=== PATIENT | male | born 1945 | race Caucasian/White ===

== ENCOUNTER → 2016-04-14 | Outpatient (CLI) | payer MEDICARE ==
[2016-04-14 10:42] LABS: Blood Urea Nitrogen 18 mg/dL (9-20); Non-African American GFR(MDRD) >60 (>60 ml/min/1.73 sqM)
--- NOTE | 2016-04-14 12:53 | CT ---
EXAMINATION TYPE: CT angio chest DATE OF EXAM: 04/14/2016 12:40 PM COMPARISON: CT chest April 17, 2015 HISTORY: Thoracic ascending aortic aneurysm CT DLP: 621.80 mGycm. Automated Exposure Control for Dose Reduction was Utilized. CONTRAST: CTA scan of the thorax is performed without and with IV Contrast, patient injected with 100 ml mL of Omnipaque 350, pulmonary embolism protocol. Three-D reconstructed images are created on independent [employer] orkstation and reviewed. FINDINGS: LUNGS: There is stable 4 x 5 mm nodular opacity posterior medial left upper lobe on axial image 21. There is stable 2 mm nodule right midlung on axial image 29. Chest posterior and lateral to this ther e is new vague 5 x 3 mm nodular opacity that can be followed. There is new linear atelectatic change anteriorly in both mid lungs near axial image 37. Some new micronodule area in the left lower lobe is present near axial image 45. There is interval improvement in bibasilar infiltrate. There is no pleu ral effusion or pneumothorax seen bilaterally. Interval resolution of masslike consolidation or pleur al fluid in the anterior right midlung anterior to ascending aorta is noted. The tracheobronchial roly e is patent. MEDIASTINUM: There is satisfactory enhancement of the pulmonary artery and its branches, there is no CT evidence for pulmonary embolism. There are no greater than 1 cm hilar or mediastinal lymph nodes. No cardiomegaly or pericardial effusion is seen. Ascending aorta measures up to 4.3 cm in diameter on current study image 73 felt unchanged from prior. Adjacent main pulmonary artery is not dilated. No linear hypodensity to suggest dissection is present. There is mild but stable prominence of the de scending thoracic aorta. There is multilevel spurring in the spine. OTHER: Large nondependent gallstone is again seen. IMPRESSION: Stable 4.2 cm aneurysm of ascending thoracic aorta. Interval resolution of the anterior m id lung fluid collection or masslike consolidation most likely reflecting resolved pleural fluid kaley ection. Scattered parenchymal nodularity present measuring up to 5 mm with some new areas noted from prior. Appropriate CT follow up as per Fleischner Society recommendations advised.
== END | disposition home or self-care (01) ==
LOC: RADCTMAIN 10:02
PROVIDERS: ATTEND Thoracic Surgery (Cardiothoracic Vascular Surgery)
DX: I71.2 Thoracic aortic aneurysm, without rupture (principal); J98.4 Other disorders of lung
CPT/HCPCS: 82565; 84520; 71275; 36415; Q9967

== ENCOUNTER → 2017-03-12 | Outpatient (CLI) | payer MEDICARE ==
[2017-03-12 13:09] LABS: Blood Urea Nitrogen 21 mg/dL (9-20)
--- NOTE | 2017-03-12 14:25 | CT ---
EXAMINATION TYPE: CT chest w con DATE OF EXAM: 03/12/2017 COMPARISON: [id number] HISTORY: Follow up scan CT DLP: 378.5 mGycm. Automated Exposure Control for Dose Reduction was Utilized. TECHNIQUE: CT scan of the thorax is performed following with IV Contrast, patient injected with 100 mL of Omnipaque 300. FINDINGS: LUNGS: The previously seen superior segment right lower lobe 5 mm pulmonary nodule is not visualized on today's examination and is likely related to slice collection. The previously seen right middle lo be 2 mm pulmonary nodule on series 4 image 32 is unchanged. The previously seen anterior mid lung sub segmental atelectasis is resolved in the interim. There is stability of the left upper lobe 5 mm pulm onary nodule on series 4 image 22. A new 3 mm pulmonary nodule seen on series 4 image 26 within the l eft upper lobe. This greater than present on the prior and nonvisualized due to slice selection. The previously seen left basilar micronodular opacity is no longer present and likely related to atelecta sis that has resolved in the interim. Punctate left basilar granuloma is noted. There is no pleural e ffusion or pneumothorax seen. The tracheobronchial tree is patent. MEDIASTINUM: The ascending thoracic aorta is stable measuring up to 4.3 cm on series 6 image 34 (christine nal sequence). The sinotubular junction measures 3.7 cm. There are no greater than 1 cm hilar or medi astinal lymph nodes. The largest right hilar lymph node measures 9 mm in short axis. Trace pericardi al effusion is present. No main pulmonary arterial enlargement. OTHER: Minimal retroareolar gynecomastia is noted bilaterally. Redemonstration of a large lamellated gallstone. Moderate multilevel degenerative changes of the thoracic spine are seen. Punctate scleroti c focus within the anterior lateral right fourth rib is well-circumscribed and may relate to a benign bone island. IMPRESSION: 1. Continued stability of the ascending thoracic aortic aneurysm measuring up to 4.3 cm. 2. No interval growth of the known bilateral subcentimeter pulmonary nodules. Continued surveillance with repeat CT thorax in one year is recommended. A single new 3 mm pulmonary nodule is present withi n the left upper lobe and could have been present on the prior examination and nonvisualized due to s lice selection as one of the previously seen nodules is not visualized on the current examination due to slice selection. 3. Cholelithiasis.
== END | disposition home or self-care (01) ==
LOC: RADCTMAIN 12:21
PROVIDERS: ATTEND Thoracic Surgery (Cardiothoracic Vascular Surgery)
DX: I71.2 Thoracic aortic aneurysm, without rupture (principal); R91.1 Solitary pulmonary nodule
CPT/HCPCS: 82565; 84520; 71260; 36415; Q9967

== ENCOUNTER 2017-12-11 12:12 | Inpatient (IN) | payer MEDICARE ==
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
[2017-12-11] MEDS ORDERED: ceFAZolin 1,000 MG in DEXTROSE/WATER 1 50ML.BAG IVPB STA (13:56)
[2017-12-11] MEDS ORDERED: ONDANSETRON 4 MG/2 ML VIAL IVP PRN (14:03)
[2017-12-11] MEDS ORDERED: HYDROcodone/APAP 5-325MG 1 EACH TAB PO PRN (14:03)
[2017-12-11] MEDS ORDERED: NALOXONE 0.4 MG/ML 1 ML VIAL IV PRN (14:03)
[2017-12-11] MEDS: SODIUM CHLORIDE 0.9% 1,000 ML IV SCH (14:44)
[2017-12-11] MEDS ORDERED: SODIUM CHLORIDE 0.9% 1,000 ML IV ONE (14:47)
[2017-12-11] MEDS ORDERED: AMPICILLIN-SULBACTAM 1.5 GM in SODIUM CHLORIDE 0.9% 50 ML IVPB STA (14:52)
[2017-12-11 14:54] LABS: Basophils % (A) 0 %; Eosinophils # (A) 0.1 k/uL (0-0.7); Eosinophils % (A) 1 %; HCT 41.9 % (39.0-53.0); Lymphocytes # (A) 0.4 k/uL (1.0-4.8); Lymphocytes % (A) 5 %; MCH 30.4 pg (25.0-35.0); MCHC 33.4 g/dL (31.0-37.0); Mean Platelet Volume 7.3; Monocytes # (A) 0.4 k/uL (0-1.0); Monocytes % (A) 4 %; Neutrophils # (A) 8.7 k/uL (1.3-7.7); Neutrophils % (A) 90 %; Platelet Count 141 k/uL (150-450); RBC 4.61 m/uL (4.30-5.90); RDW 12.5 % (11.5-15.5); WBC 9.7 k/uL (3.8-10.6)
[2017-12-11] MEDS: ACETAMINOPHEN TAB 325 MG TAB PO PRN ×2 (14:57→23:02)
[2017-12-11 15:43] LABS: Albumin 3.4 g/dL (3.5-5.0); Calcium 8.9 mg/dL (8.4-10.2); Potassium 4.5 mmol/L (3.5-5.1); Total Bilirubin 0.8 mg/dL (0.2-1.3); Total Protein 6.8 g/dL (6.3-8.2)
[2017-12-11] MEDS ORDERED: ALBUTEROL NEBULIZED 2.5 MG/3 ML INHALATION PRN (16:09)
[2017-12-11] MEDS ORDERED: NON-FORMULARY DRUG (Saw Palmetto [Saw Palmetto] 500 MG) PO SCH (21:00)
[2017-12-11] MEDS: LORATADINE 10 MG TAB PO SCH (21:37)
[2017-12-11] MEDS: MONTELUKAST 10 MG TAB PO SCH (21:37)
[2017-12-11] MEDS: MAGNESIUM OXIDE 400 MG TAB PO SCH (21:37)
[2017-12-11] MEDS: ceFAZolin 1,000 MG in DEXTROSE/WATER 1 50ML.BAG IVPB SCH (23:02)
[2017-12-12] MEDS ORDERED: AMPICILLIN-SULBACTAM 1.5 GM in SODIUM CHLORIDE 0.9% 50 ML IVPB SCH ×2
[2017-12-12] MEDS: MAGNESIUM OXIDE 400 MG TAB PO SCH ×2 (08:36→21:35)
[2017-12-12] MEDS: ceFAZolin 1,000 MG in DEXTROSE/WATER 1 50ML.BAG IVPB SCH ×3 (08:36→23:20)
[2017-12-12] MEDS: SODIUM CHLORIDE 0.9% 1,000 ML IV SCH (13:35)
--- NOTE | 2017-12-12 18:06 | HP ---
HISTORY AND PHYSICAL CHIEF COMPLAINT: A 72-year-old white male with past medical history of pulmonary artery aneurysm, pulmonary nodules, status post thymectomy, developed right foot pain, right thigh erythema, tenderness. He notes some chills and warmth and redness to his leg. He started having fevers, brought to hospital, admitted for cellulitis of the leg. Placed on IV Kefzol. This morning he is improving with less erythema to the legs. HOME MEDICATIONS: He takes is Cetirizine, Ventolin, magnesium, montelukast, Saw palmetto. ALLERGIES: No known drug allergies. REVIEW OF SYSTEMS: Fourteen point review of systems negative except for mentioned in HPI. PAST MEDICAL HISTORY: Asthma, diverticulitis, chronic back pain, AAA surgery, adenoidectomy, bowel resection, orthopedic surgery, tonsillectomy, eye surgery. PHYSICAL EXAM: Vital signs stable. Afebrile. Cardiovascular S1, S2. LUNGS: Clear. GI soft. Hematology negative Homans. Psych: Fair mood and affect. Integument shows right foot is red, swollen. Hematology: Negative Homans. Psych: Fair mood and affect. NEUROLOGIC: Alert and orient x3. Ophthalmologic: Pupils equal, round, reactive to light and accommodation. PLAN: Give IV antibiotics. Kefzol since it is improving him overnight. Expect to continue this another 24 to 48 hours and then switch to oral antibiotics and discharge home at that point. There is no signs of puncture wounds at this time. No signs of necrotizing fasciitis that I can see or any gangrene. The patient is improving, so we will continue with the cefazolin. Await for Infectious Disease consult. MMODL / IJN: [id number] /
[2017-12-12] MEDS ORDERED: IBUPROFEN 400 MG TAB PO PRN (18:07)
[2017-12-12] MEDS: MONTELUKAST 10 MG TAB PO SCH (21:35)
[2017-12-12] MEDS: LORATADINE 10 MG TAB PO SCH (21:35)
[2017-12-12] MEDS: ACETAMINOPHEN TAB 325 MG TAB PO PRN (23:44)
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
[2017-12-13] MEDS: SODIUM CHLORIDE 0.9% 1,000 ML IV SCH (06:21)
[2017-12-13] MEDS: ceFAZolin IN SWFI 2 GM/20 ML SYRINGE IVP SCH ×3 (08:34→23:27)
[2017-12-13] MEDS: MAGNESIUM OXIDE 400 MG TAB PO SCH ×2 (08:34→20:38)
[2017-12-13] MEDS: MULTIVITAMINS, THERA 1 EACH TAB PO SCH (12:00)
[2017-12-13 13:04] LABS: Basophils % (A) 1 %; Eosinophils # (A) 0.2 k/uL (0-0.7); Eosinophils % (A) 4 %; HCT 37.3 % (39.0-53.0); HGB 12.5 gm/dL (13.0-17.5); Lymphocytes # (A) 0.9 k/uL (1.0-4.8); Lymphocytes % (A) 18 %; MCH 30.4 pg (25.0-35.0); MCHC 33.4 g/dL (31.0-37.0); Mean Platelet Volume 7.6; Monocytes # (A) 0.3 k/uL (0-1.0); Monocytes % (A) 7 %; Neutrophils # (A) 3.3 k/uL (1.3-7.7); Neutrophils % (A) 67 %; Platelet Count 150 k/uL (150-450); RDW 12.5 % (11.5-15.5)
[2017-12-13 13:20] LABS: Anion Gap 4 mmol/L; Blood Urea Nitrogen 13 mg/dL (9-20); Calcium 8.6 mg/dL (8.4-10.2); Carbon Dioxide 30 mmol/L (22-30); Chloride 108 mmol/L (98-107); Glucose 95 mg/dL (74-99); Potassium 4.7 mmol/L (3.5-5.1); Sodium 142 mmol/L (137-145)
--- NOTE | 2017-12-13 13:45 | PN ---
PROGRESS NOTE SUBJECTIVE: 72-year-old white male came in with cellulitis of the right leg. He had spiked a fever of 101 degrees Fahrenheit overnight. His leg is improving with Kefzol 2 g IV q.8 hours. Cardiovascular S1, S2. Lungs clear. Psych normal. T-max 101.4, temp now 97.2, pulse is 50s. Respiratory 16 to 18, 98% on room air. ASSESSMENT: Systemic inflammatory response syndrome secondary to cellulitis of the legs secondary to possible puncture area or open cut to the leg. White count is normal. Hemoglobin is 12.5. Cardiovascular S1-S2. Lungs clear. Integument shows redness cleared up except on the foot with redness and warmth on integument exam. PLAN: Continue with IV antibiotics. I do not suspect MRSA as this improved with Kefzol. Blood cultures are negative. Please see further orders. Await for Infectious Disease recommendation. MMODL / IJN: [id number] /
[2017-12-13 14:04] LABS: Erythrocyte Sedimentation Rate 56 mm/hr (0-15)
[2017-12-13] MEDS: LORATADINE 10 MG TAB PO SCH (20:38)
[2017-12-13] MEDS: MONTELUKAST 10 MG TAB PO SCH (20:39)
--- NOTE | 2017-12-13 22:56 | P.PN ---
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 For when it started to the time he presented to the emergency center and then noticed that there was some erythema but also developed onto his right side. Because of fever chills malaise and increasing pain he presented to the emergency center. 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 Patient was found evidence of a cellulitis to the right lower extremity and was admitted. And with this the infectious diseases consultation was requested. This pleasant gentleman relates that he is feeling better at this time. His temperature has decreased from 102-100.4. His chills and rigors have improved. The pain to the site has also improved. He does not recall any specific trauma to the right lower extremity. He does not recall stepping on anything. He has not obtained any new shoes. He has no difficulty with any fungal infection to the foot. He has not had this problem in the past. 12/13/2017 patient was feeling better but again became febrile at 101 temperature. He is feeling somewhat better but the dorsum of the right foot continues to be quite tender and swollen. Denies other interim troubles. No trouble antibiotic therapy. No nausea emesis diarrhea or rash. Objective - Vital Signs Vital signs: Vital Signs Temp 98.7 F 12/13/17 15:00 Pulse 65 12/13/17 15:00 Resp 18 12/13/17 15:49 BP 136/71 12/13/17 15:00 Pulse Ox 96 12/13/17 15:00 Intake & Output 12/13/17 12/13/17 12/14/17 06:59 18:59 06:59 Intake Total 800 Balance 800 Intake: Oral 800 Other: Voiding Method Toilet Toilet # Voids 2 2 - Exam Very pleasant 72-year-old male who is of a appropriate build and is not in distress, fevers chills and rigors have all improved HEENT: Anicteric conjunctiva are pink and moist nasal mucosa grossly intact without significant lesions, there is no thrush. Neck: The neck is supple without significant lymphadenopathy or thyromegaly. Lungs: Good bilateral air entry without significant crackles or wheezing. There is no significant bronchial sounds. There is no egophony or dullness. Heart: Regular rate and rhythm with an audible S1-S2, no S3 no S4. There is no significant murmur click or rub, PMI was nondisplaced. Abdomen: Positive bowel sounds soft and nontender without palpable masses or organomegaly. There was no guarding or rebound. Extremities: The upper extremities have excellent pulses they are symmetric, no significant petechiae or telangiectasia. No splinter hemorrhages were noted. The left lower extremity has no abnormalities. The right lower extremity shows evidence of the dense erythema the dorsum of foot that his sense medial aspect of the calf. There is resolution of the erythema on the right proximal thigh. There is palpable and swollen lymphadenopathy to the right inguinal area that has improved. Left inguinal lymph node is nonpalpable and nontender. No other abnormal lymph nodes are noted. No other skin lesions or rashes are seen. Neuro: Awake alert oriented to person place and time. There are no acute new gross focal sensory motor deficits. - Labs CBC & Chem 7: 12/13/17 12:52 12/13/17 12:52 Labs: Abnormal Lab Results - Last 24 Hours (Table) 12/13/17 12/13/17 Range/Units 12:52 12:52 RBC 4.10 L (4.30-5.90) m/uL Hgb 12.5 L (13.0-17.5) gm/dL Hct 37.3 L (39.0-53.0) % Lymphocytes # 0.9 L (1.0-4.8) k/uL ESR 56 H (0-15) mm/hr Chloride 108 H (98-107) mmol/L Microbiology - Last 24 Hours (Table) 12/11/17 14:33 Blood Culture - Preliminary Blood No Growth after 48 hours Laboratory Results WBC 5.0 k/uL (3.8-10.6) 12/13/17 12:52 RBC 4.10 m/uL (4.30-5.90) L 12/13/17 12:52 Hgb 12.5 gm/dL (13.0-17.5) L 12/13/17 12:52 Hct 37.3 % (39.0-53.0) L 12/13/17 12:52 MCV 91.0 fL (80.0-100.0) 12/13/17 12:52 MCH 30.4 pg (25.0-35.0) 12/13/17 12:52 MCHC 33.4 g/dL (31.0-37.0) 12/13/17 12:52 RDW 12.5 % (11.5-15.5) 12/13/17 12:52 Plt Count 150 k/uL (150-450) 12/13/17 12:52 Neutrophils % 67 % 12/13/17 12:52 Lymphocytes % 18 % 12/13/17 12:52 Monocytes % 7 % 12/13/17 12:52 Eosinophils % 4 % 12/13/17 12:52 Basophils % 1 % 12/13/17 12:52 Neutrophils # 3.3 k/uL (1.3-7.7) 12/13/17 12:52 Lymphocytes # 0.9 k/uL (1.0-4.8) L 12/13/17 12:52 Monocytes # 0.3 k/uL (0-1.0) 12/13/17 12:52 Eosinophils # 0.2 k/uL (0-0.7) 12/13/17 12:52 Basophils # 0.0 k/uL (0-0.2) 12/13/17 12:52 ESR 56 mm/hr (0-15) H 12/13/17 12:52 Sodium 142 mmol/L (137-145) 12/13/17 12:52 Potassium 4.7 mmol/L (3.5-5.1) 12/13/17 12:52 Chloride 108 mmol/L (98-107) H 12/13/17 12:52 Carbon Dioxide 30 mmol/L (22-30) 12/13/17 12:52 Anion Gap 4 mmol/L 12/13/17 12:52 BUN 13 mg/dL (9-20) 12/13/17 12:52 Creatinine 0.79 mg/dL (0.66-1.25) 12/13/17 12:52 Est GFR (CKD-EPI)AfAm >90 (>60 ml/min/1.73 sqM) 12/13/17 12:52 Est GFR (CKD-EPI)NonAf >90 (>60 ml/min/1.73 sqM) 12/13/17 12:52 Glucose 95 mg/dL (74-99) 12/13/17 12:52 Plasma Lactic Acid Renny 1.0 mmol/L (0.7-2.0) 12/11/17 14:33 Calcium 8.6 mg/dL (8.4-10.2) 12/13/17 12:52 Total Bilirubin 0.8 mg/dL (0.2-1.3) 12/11/17 14:33 AST 49 U/L (17-59) 12/11/17 14:33 ALT 46 U/L (21-72) 12/11/17 14:33 Alkaline Phosphatase 55 U/L (38-126) 12/11/17 14:33 Total Protein 6.8 g/dL (6.3-8.2) 12/11/17 14:33 Albumin 3.4 g/dL (3.5-5.0) L 12/11/17 14:33 Microbiology 12/11/17 14:33 Blood Blood Culture - Preliminary No Growth after 48 hours Assessment and Plan (1) Cellulitis of right lower extremity Narrative/Plan: 72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 Has some mild varicose veins without evidence of any recent trauma. His developed the sudden onset of cellulitis with ascending lymphangitis to the limb. With admission, elevation antibiotic therapy is already showing some improvement. Given the marked improvement would continue the cefazolin 2 g IV piggyback every 8 hours. Local wound care with Silvadene wrap has been requested to the lower extremity. We'll expect that the ascending lymphangitis and right inguinal lymphadenopathy will rapidly improve with antibiotic therapy. The patient has no antecedent trauma or fungal infection to the skin of the foot of the nails as routine portals of entry. The patient is instructed once a cellulitis as occurred it is more likely to occur in the future he'll need to have a close surveillance to the limb. Multivitamin with zinc is added to his regiment elevation of the limb at rest and monitor. 12/13/2017 the patient has had improvement but is still febrile overnight. We' ll continue current antibiotic therapy given his significant improvement. Continue with local wound care which is Silvadene wrap with elevation. Continue the protein intake. Hopefully his fever will resolve in the swelling and erythema to the foot will improve with antibiotic therapy elevation and some compression. If further improvement without fever will be able to transition to oral antibiotic therapy with local care and follow-up in the outpatient setting. Current Visit: Yes Status: Acute Code(s): L03.115 - CELLULITIS OF RIGHT LOWER LIMB SNOMED Code(s): 269730869
[2017-12-14] MEDS: SODIUM CHLORIDE 0.9% 1,000 ML IV SCH (02:12)
[2017-12-14 07:55] VITALS: BP 145/80; PULSE 60; RESP 17; TEMP 98.1
[2017-12-14] MEDS: MAGNESIUM OXIDE 400 MG TAB PO SCH (09:17)
[2017-12-14] MEDS: MULTIVITAMINS, THERA 1 EACH TAB PO SCH (09:17)
[2017-12-14] MEDS: ceFAZolin IN SWFI 2 GM/20 ML SYRINGE IVP SCH ×2 (09:17→14:27)
[2017-12-14] MEDS ORDERED: HEPARIN SODIUM,PORCINE 5,000 UNIT/ML 1 ML VIAL SQ SCH (10:30)
--- NOTE | 2017-12-14 10:32 | P.PN ---
Subjective Progress Note Date: 12/14/17 This is a 72-year-old male patient being seen examined and evaluated today for follow-up while doing rounds and covering for Dr. Rakan Penn. The patient does have a past medical history of AAA with surgical repair, chronic back pain , bowel resection, and diverticulitis. The patient was brought into the emergency after he noticed some right foot pain with right leg diffuse cellulitis and erythema with warmth. He was having some significant pain in his legs and started having fevers with a T-max of 10 2F. He came into the emergency room and was admitted for further evaluation and workup with an infectious disease consult. Upon examination today the patient has lying in bed on room air. He has been afebrile overnight. Antibiotics are being adjusted by infectious disease and currently he is on Kefzol. His right lower extremity is wrapped with Silvadene and an Kei wrap. Patient states the swelling is less and the pain is less in that leg as well. The patient is requesting to go home. Currently awaiting antibiotic recommendations from infectious disease, IV versus oral outpatient with outpatient wound care follow- up. Objective - Vital Signs Vital signs: Vital Signs Temp 98.1 F 12/14/17 07:00 Pulse 60 12/14/17 09:21 Resp 17 12/14/17 09:21 BP 145/80 12/14/17 07:00 Pulse Ox 95 12/14/17 07:00 Intake & Output 12/13/17 12/14/17 12/14/17 18:59 06:59 18:59 Intake Total 800 400 240 Balance 800 400 240 Intake: Oral 800 400 240 Other: Voiding Method Toilet Toilet # Voids 2 1 - Exam GENERAL EXAM: Alert, comfortable in no apparent distress. HEAD: Normocephalic. EYES: Normal reaction of pupils, equal size. NOSE: Clear with pink turbinates. THROAT: No erythema or exudates. NECK: No masses, no JVD. CHEST: No chest wall deformity. LUNGS: Equal air entry with no crackles, wheeze, rhonchi or dullness. CVS: S1 and S2 normal with no audible mumurs, regular rhythm. ABDOMEN: No hepatosplenomegaly, normal bowel sounds, no guarding or rigidity. EXTREMITIES: No edema noted, pedal pulses palpable. Right lower extremity wrapped with an Kei wrap, clean dry and intact CENTRAL NERVOUS SYSTEM: No focal deficits, tone is normal in all 4 extremities. - Labs CBC & Chem 7: 12/13/17 12:52 12/13/17 12:52 Labs: Abnormal Lab Results - Last 24 Hours (Table) 12/13/17 12/13/17 Range/Units 12:52 12:52 RBC 4.10 L (4.30-5.90) m/uL Hgb 12.5 L (13.0-17.5) gm/dL Hct 37.3 L (39.0-53.0) % Lymphocytes # 0.9 L (1.0-4.8) k/uL ESR 56 H (0-15) mm/hr Chloride 108 H (98-107) mmol/L Microbiology - Last 24 Hours (Table) 12/11/17 14:33 Blood Culture - Preliminary Blood No Growth after 48 hours Assessment and Plan Assessment: Assessment Cellulitis of the right lower extremity Febrile illness related to cellulitis History of chronic back pain History of diverticulitis History of AAA with repair Plan Medications have been reviewed and will be continued as ordered. Antibiotics per infectious disease, potential discharge in the near future depending on IDs recommendations Blood cultures currently negative Wound care per infectious disease Continue with pulmonary hygiene, coughing and deep breathing exercises, and supportive care. GI and DVT prophylaxis. We will continue to monitor labs/results and adjust treatment as necessary. Further recommendations pending. I, the signing physician performed an examination of the patient, discussed and directed their management with the nurse practitioner. I have reviewed the nurse practitioner's note and agree with the documented findings, orders and plan of care. Of note we are covering for Dr. Rakan Penn today
--- NOTE | 2017-12-14 14:07 | P.DS ---
Providers Date of admission: 12/13/17 13:01 Expected date of discharge: 12/14/17 Attending physician: Rakan Penn Consults: 12/11/17 16:14 Consult Physician Routine Consulting Provider: Rakan Arevalo Consult Reason/Comments: right leg cellulitis Do you want consulting provider notified?: Yes [facility] Course: This is a 72-year-old male patient being seen examined and evaluated today for follow-up while doing rounds and covering for Dr. Rakan Penn. The patient does have a past medical history of AAA with surgical repair, chronic back pain , bowel resection, and diverticulitis. The patient was brought into the emergency after he noticed some right foot pain with right leg diffuse cellulitis and erythema with warmth. He was having some significant pain in his legs and started having fevers with a T-max of 10 2F. He came into the emergency room and was admitted for further evaluation and workup with an infectious disease consult. Upon examination today the patient has lying in bed on room air. He has been afebrile overnight. Antibiotics are being adjusted by infectious disease and currently he is on Kefzol. His right lower extremity is wrapped with Silvadene and an Kei wrap. Patient states the swelling is less and the pain is less in that leg as well. The patient is requesting to go home. Currently he was e-scribed antibiotics from infectious disease, and cleared for discharge from their standpoint, with outpatient wound care follow-up. Assessment Cellulitis of the right lower extremity Febrile illness related to cellulitis History of chronic back pain History of diverticulitis History of AAA with repair Plan Medications have been reviewed and will be continued as ordered. Antibiotics per infectious disease, recommendations as e-scibed Blood cultures currently negative Wound care per infectious disease Continue with pulmonary hygiene, coughing and deep breathing exercises, and supportive care. GI and DVT prophylaxis. We will continue to monitor labs/results and adjust treatment as necessary. Further recommendations pending. I, the signing physician performed an examination of the patient, discussed and directed their management with the nurse practitioner. I have reviewed the nurse practitioner's note and agree with the documented findings, orders and plan of care. Of note we are covering for Dr. Rakan Penn today Patient Condition at Discharge: Stable Plan - Discharge Summary Discharge Rx Participant: Yes New Discharge Prescriptions: New Cefadroxil [Duricef] 500 mg PO Q12HR #14 cap Continue Magnesium Malate 1250mg 1,250 mg PO BID [place] 500 mg PO BID Albuterol Inhaler [Ventolin Hfa Inhaler] 1 puff INHALATION RT-Q6H PRN PRN Reason: Shortness Of Breath Montelukast [Singulair] 10 mg PO HS Cetirizine HCl 10 mg PO HS Jose Luis Men Supplement (Unknown) 1 tab PO BID Discharge Medication List Albuterol Inhaler [Ventolin Hfa Inhaler] 1 puff INHALATION RT-Q6H PRN 12/11/17 [ History] Cetirizine HCl 10 mg PO HS 12/11/17 [History] Magnesium Malate 1250mg 1,250 mg PO BID 12/11/17 [History] Jose Luis Men Supplement (Unknown) 1 tab PO BID 12/11/17 [History] Montelukast [Singulair] 10 mg PO HS 12/11/17 [History] [place] 500 mg PO BID 12/11/17 [History] Cefadroxil [Duricef] 500 mg PO Q12HR #14 cap 12/14/17 [Rx] Follow up Appointment(s)/Referral(s): Rakan Penn MD [Primary Care Provider] - 1-2 days Rakan Arevalo MD [STAFF PHYSICIAN] - 1 Week Patient Instructions/Handouts: Cellulitis (DC) Activity/Diet/Wound Care/Special Instructions: activity as tolerated wound care per ID on follow up Discharge Disposition: HOME SELF-CARE
[2017-12-14] MEDS ORDERED: PANTOPRAZOLE 40 MG/10 ML VIAL IVP SCH (21:00)
== END 2017-12-14 15:05 | disposition home or self-care (01) | DRG 603 ==
LOC: EC 12:12 → 4MS4W 14:30 → OBSVTOIN 12-13 13:01
PROVIDERS: ADMIT Family Medicine; ATTEND Family Medicine
DX: L03.115 Cellulitis of right lower limb (principal); R65.10 Systemic inflammatory response syndrome (SIRS) of non-infectious origin without acute organ dysfunction; E78.5 Hyperlipidemia, unspecified; I83.90 Asymptomatic varicose veins of unspecified lower extremity; J45.909 Unspecified asthma, uncomplicated; Z83.3 Family history of diabetes mellitus; Z86.79 Personal history of other diseases of the circulatory system; Z82.61 Family history of arthritis; M54.30 Sciatica, unspecified side; G89.29 Other chronic pain; Z90.49 Acquired absence of other specified parts of digestive tract; R91.8 Other nonspecific abnormal finding of lung field; Z79.899 Other long term (current) drug therapy
CPT/HCPCS: 80048; 80053; 83605; 85025; 85652; 87040; 94640; 96365; 99284

== ENCOUNTER → 2018-01-29 | Outpatient (CLI) | payer MEDICARE ==
--- NOTE | 2018-02-03 14:57 | P.ARTDOP ---
Arterial Doppler LOWER EXTREMITY ARTERIAL DOPPLER: DATE OF SERVICE: 01/29/2018 Reason for study: Bilateral cellulitis. Doppler waveforms: Multiphasic bilaterally throughout. Pulse volume recording: []. Pressure gradients: None. Ankle-brachial indices: Greater than 1 bilaterally. Toe pressures: 106 on the right, 111 on the left Impression: Normal study.
== END | disposition home or self-care (01) ==
LOC: RADUSWWP 14:06
PROVIDERS: ATTEND Family Medicine
DX: I70.213 Atherosclerosis of native arteries of extremities with intermittent claudication, bilateral legs (principal)
CPT/HCPCS: 93922

== ENCOUNTER → 2018-03-19 | Outpatient (CLI) | payer MEDICARE ==
--- NOTE | 2018-03-19 09:43 | CT ---
EXAMINATION TYPE: CT chest wo con DATE OF EXAM: 03/19/2018 COMPARISON: 03/12/2017 HISTORY: Ascending Aortic Aneurysm CT DLP: 467 mGycm. Automated Exposure Control for Dose Reduction was Utilized. TECHNIQUE: CT scan of the thorax is performed without IV contrast. FINDINGS: LUNGS: No pneumothorax, pleural effusion or focal pneumonia. Previously noted 5 mm or less pulmonary nodules have a stable appearance. Calcified granuloma left lower lobe axial image 44. MEDIASTINUM: Lack of IV contrast limits the exam. Mild diffuse atherosclerotic plaque of the aorta. T here is a small pericardial effusion. There are calcified lymph nodes in the hilum and coronary artery calcification. Previous seen noted s mall lymph node measuring 9 mm is stable and has a benign appearance. aorta: At the level of the annulus the aorta measures 3.9 cm. At the tubaoannular junction aorta measures 3.4 cm. At the mid ascending aortic level the aorta measures 4.4 cm. At the level the distal ascending aorta that measures 4.1 cm The level aortic arch beyond the great vessels the aorta measures 3.3 cm The descending thoracic aorta has a normal measurement. OTHER: Large gallstone noted. Degenerative change of the spine noted. Changes of minimal gynecomastia . Sclerotic focus within the previously noted anterior lateral right fourth rib is stable. Hypodensit y within the left kidney is compatible with a simple cyst measuring 7 Hounsfield units. Smaller hypod ensity involving upper pole the right kidney too small to characterize. Splenic granuloma noted.. IMPRESSION: 1. The largest measurement of the descending thoracic aorta is 4.4 cm minimally changed from the prio r exam of 4.3 cm. 2. Large gallstone. 3. Tiny pericardial effusion and coronary artery calcification. 4. Stable subcentimeter nonspecific pulmonary nodules. At least one of which appears be related to a calcified granuloma.
== END | disposition home or self-care (01) ==
LOC: RADCTMAIN 08:45
PROVIDERS: ATTEND Thoracic Surgery (Cardiothoracic Vascular Surgery)
DX: I71.2 Thoracic aortic aneurysm, without rupture (principal); I25.10 Atherosclerotic heart disease of native coronary artery without angina pectoris; R91.8 Other nonspecific abnormal finding of lung field
CPT/HCPCS: 71250

== ENCOUNTER → 2018-11-05 | Outpatient (CLI) | payer MEDICARE ==
--- NOTE | 2018-11-07 07:26 | US ---
EXAMINATION TYPE: US prostate transrectal DATE OF EXAM: 11/05/2018 COMPARISON: 04/16/2015 CLINICAL HISTORY: Elevated PSA R97.20. Elevated PSA This examination was performed using the transrectal probe. EXAM MEASUREMENTS: Gland Size: 6.2 x 4.0 x 5.4cm Volume: 69.5ml Predicted PSA: 8.34 Actual PSA (if available):unavailable, office closed today Heterogeneous gland , unable to identify any distinct nodule within peripheral zone. Well-circumscrib ed nodules are seen within the central zone indicating benign prostatic hypertrophy. IMPRESSION: Diffusely heterogenous and enlarged prostate gland indicative of benign prostatic hyperp lasia. No focal suspicious lesion is able to be identified within the peripheral zone however given t his patient's PSA prostate gland MRI could be utilized for further evaluation. Predicted PSA = volume x 0.12 ng/ml Calculated Volume = 0.5236 x L x W x H
== END | disposition home or self-care (01) ==
LOC: RADUSWWP 08:59
PROVIDERS: ATTEND Family Medicine
DX: N40.0 Benign prostatic hyperplasia without lower urinary tract symptoms (principal)
CPT/HCPCS: 76872

== ENCOUNTER → 2019-03-29 | Outpatient (CLI) | payer MEDICARE ==
--- NOTE | 2019-03-29 12:33 | CT ---
EXAMINATION TYPE: CT chest w con DATE OF EXAM: 03/29/2019 COMPARISON: 03/19/2018 HISTORY: Thoracic aneurysm CT DLP: 381.1 mGycm Automated exposure control for dose reduction was used. CONTRAST: CT scan of the chest is performed with IV Contrast, patient injected with 100 mL of Isovue 300. FINDINGS: LUNGS: No pneumothorax, pleural effusion or focal pneumonia previously noted 5 mm less pulmonary nodu les have a stable appearance. Calcified granuloma left lower lobe stable. MEDIASTINUM: There are no greater than 1 cm hilar or mediastinal lymph nodes. No pericardial effusi on is seen. AORTA: At the level of the annulus the aorta measures 3.9 cm. At the tubaoannular junction aorta measures 3.4 cm. At the mid ascending aortic level the aorta measures 4.4 cm. At the level the distal ascending aorta measures 4.1 cm. At the level of aortic arch beyond the great vessels the aorta measures 3.3 cm The descending thoraci c aorta has a normal measurement. OTHER: Large gallstone noted. Degenerative change of the spine noted. Changes of minimal gynecomasti a. Sclerotic focus within the previously noted anterior lateral right fourth rib is stable. Hypodensi ty within the left kidney is compatible with a simple cyst measuring 7 Hounsfield units. Smaller hypo density involving upper pole the right kidney too small to characterize. Splenic granuloma noted. IMPRESSION: 1. Stable ascending aortic aneurysm measuring a maximal dimension of 4.4 cm. 2. Stable large gallstone. 3. Trace amount pericardial fluid with coronary artery atherosclerotic changes. 4. Stable subcentimeter pulmonary nodules.
== END | disposition home or self-care (01) ==
LOC: RADCTMAIN 10:52
PROVIDERS: ATTEND Thoracic Surgery (Cardiothoracic Vascular Surgery)
DX: I71.2 Thoracic aortic aneurysm, without rupture (principal); R91.8 Other nonspecific abnormal finding of lung field
CPT/HCPCS: 82565; 84520; 71260; 36415; Q9967

== ENCOUNTER → 2020-03-26 | Outpatient (CLI) | payer MEDICARE ==
--- NOTE | 2020-03-26 12:20 | CT ---
EXAMINATION TYPE: CT angio chest DATE OF EXAM: 03/26/2020 12:11 PM COMPARISON: CTA chest March 29, 2019 and older CTs HISTORY: follow up thoracic aortic aneurysm CT DLP: 533 mGycm Automated exposure control for dose reduction was used. CONTRAST: CTA scan of the thorax is performed without and with IV Contrast, patient injected with 100 mL of Iso michelle 370, aneurysm protocol. 3D reconstructed images are created on an independent workstation and re viewed.. FINDINGS: LUNGS: New 8 x 7 mm groundglass nodule or nodular consolidation maximum 12 posterior left upper lobe. Mild linear scarring in the lingula. No pleural effusion or pneumothorax. Stable 4 to 5 mm medial le ft lower lobe calcified nodule or granuloma axial image 48. MEDIASTINUM: No suspicious hyperdense material within the aortic arch to suggest intramural hematoma. Persistent aneurysm of the ascending aorta measuring up to 4.5 cm axial image 30. Similar measuremen ts of aorta where it is most prominent on sagittal images noted. No aneurysmal extension into the arc h or descending aorta. Normal 3 vessel origins from arch. Satisfactory enhancement of the central pul monary arteries. There are no new greater than 1 cm hilar or mediastinal lymph nodes. No cardiomeg kaitlin or pericardial effusion is seen. OTHER: Bridging osteophytes in the spine redemonstrated. Large intraluminal gallstone in gallbladder again seen. Simple appearing 3.1 cm thin-walled cyst upper pole left kidney redemonstrated. IMPRESSION: Stable 4.5 cm ascending aortic aneurysm accounting for technical differences.
== END | disposition home or self-care (01) ==
LOC: RADCTMAIN 10:24
PROVIDERS: ATTEND Thoracic Surgery (Cardiothoracic Vascular Surgery)
DX: I71.2 Thoracic aortic aneurysm, without rupture (principal)
CPT/HCPCS: 82565; 84520; 71275; 36415; Q9967

== ENCOUNTER → 2020-04-14 | Outpatient (CLI) | payer MEDICARE ==
--- NOTE | 2020-04-16 11:54 | PE ---
Nuclear medicine PET/CT HISTORY: Solitary pulmonary nodule, initial Patient received 11.3 mCi F-18 FDG intravenously delayed scanning was performed from the skull base t o the mid thighs. Localization and attenuation correction CT scan was performed. Correlation CT chest 03/26/2020, CT 03/29/2019 Chest and neck: The subcentimeter nodular density in the left upper lobe is somewhat ill-defined on p rior CT and not definitively seen on today's exam, there is no associated hypermetabolic uptake. Ther e is no cervical or supraclavicular adenopathy. No mediastinal, axillary, or hilar adenopathy, no ple ural or pericardial effusion. Scattered granuloma are present in the left lung with calcified hilar n odes. There are coronary artery calcifications. ABDOMEN: There is no liver mass. No retroperitoneal adenopathy. Calcified gallstone is present. Corti jose luis cysts present upper and lower pole left kidney. Scattered granuloma within the spleen. There is n o ascites. Postop change noted in the sigmoid colon. Prostate is enlarged. No pelvic adenopathy. Osseous structures show no suspicious uptake. Degenerative disc change and facet arthropathy noted in the lower lumbar spine. Osteoarthritis present within the shoulders. IMPRESSION: Previously identified nodule described in prior chest CT is not seen on today's exam. No suspicious uptake on PET/CT. IMPRESSION: No suspicious uptake
== END | disposition home or self-care (01) ==
LOC: RADPETMAIN 08:58
PROVIDERS: ATTEND Thoracic Surgery (Cardiothoracic Vascular Surgery)
DX: R91.1 Solitary pulmonary nodule (principal)
CPT/HCPCS: 78815; A9552

== ENCOUNTER → 2021-04-09 | Outpatient (CLI) | payer MEDICARE ==
--- NOTE | 2021-04-09 12:14 | CT ---
EXAMINATION TYPE: CT chest w con DATE OF EXAM: 04/09/2021 COMPARISON: 03/26/2020 HISTORY: Chest mass/lump CT DLP: 322.2 mGycm Automated exposure control for dose reduction was used. CONTRAST: CT scan of the chest is performed with IV Contrast, patient injected with 100 mL of Isovue 300. FINDINGS: LUNGS: No distinct pulmonary nodules seen. No evidence for infiltrate or effusion. No volume loss see n. MEDIASTINUM: 4.2 cm ascending thoracic aortic aneurysm. Thoracic aorta is of normal caliber. The hear t is not enlarged. UPPER ABDOMEN: Calcified gallstone identified. Simple cyst upper pole left kidney. OTHER: No additional significant abnormality is seen. IMPRESSION: No distinct pulmonary nodule identified at this time.
== END | disposition home or self-care (01) ==
LOC: RADCTMAIN 10:46
PROVIDERS: ATTEND Thoracic Surgery (Cardiothoracic Vascular Surgery)
DX: R22.2 Localized swelling, mass and lump, trunk (principal)
CPT/HCPCS: 82565; 84520; 71260; 36415; Q9967

== ENCOUNTER → 2022-03-18 | Outpatient (CLI) | payer MEDICARE ==
--- NOTE | 2022-03-18 14:49 | CT ---
EXAMINATION TYPE: CT chest w con CT DLP: 390 mGycm, Automated exposure control for dose reduction was used. DATE OF EXAM: 03/18/2022 1:59 PM COMPARISON: CT chest 03/18/2022. CLINICAL INDICATION:Male, 77 years old with history of I71.4 ABDOMINAL AORTIC ANEURYSM, WITHOUT RUPTU RE; [facility], f/u aneurysm TECHNIQUE: Multiple axial images were obtained through the chest following the administration of 70 c c of Isovue 300. FINDINGS: LUNGS/ PLEURA: No pleural effusion, pneumothorax, or focal consolidation. Stable 2 mm left base also granuloma. Atelectasis along the left major fissure. AIRWAY: Patent and unremarkable.. HEART: Size within normal limits. No pericardial effusion. MEDIASTINUM: Few calcified mediastinal lymph nodes are measured. No pathologically enlarged adenopath y VASCULATURE: Stable ascending thoracic aortic aneurysm measuring 4.3 cm. The aortic root measures 3. 6 cm. The descending thoracic aorta measures 2.3 cm's. MUSCULOSKELETAL: No acute osseous abnormalities. Mild multilevel degenerative disc disease. Multileve l Schmorl's nodes. SOFT TISSUES/LYMPH NODES: Unremarkable. LOWER NECK: No significant findings. UPPER ABDOMEN: Cholelithiasis. Bilateral renal cysts the largest visualized on the right measuring 1. 9 cm the largest on the left visualized measuring 3.8 cm. IMPRESSION: 1. Stable ascending thoracic aortic aneurysm measuring up to 4.3 cm. 2. Cholelithiasis.
== END | disposition home or self-care (01) ==
LOC: RADCTMAIN 13:03
PROVIDERS: ATTEND Family Medicine
DX: I71.21 Aneurysm of the ascending aorta, without rupture (principal); K80.20 Calculus of gallbladder without cholecystitis without obstruction
CPT/HCPCS: 82565; 84520; 71260; 36415; Q9967

== ENCOUNTER → 2023-03-27 | Outpatient (CLI) | payer MEDICARE ==
[2023-03-27 13:50] LABS: African American GFR (CKD) 81 (>60 ml/min/1.73 sqM); Blood Urea Nitrogen 16 mg/dL (9-20); Non-African American GFR(CKD) 70 (>60 ml/min/1.73 sqM)
--- NOTE | 2023-03-27 15:01 | CT ---
EXAMINATION TYPE: CT angio chest DATE OF EXAM: 03/27/2023 COMPARISON: Prior chest CT March 18, 2022 HISTORY: THORACIC AORTIC ANEURYSM, without rupture. CT DLP: 837.6 mGycm. Automated Exposure Control for Dose Reduction was Utilized. CONTRAST: CTA scan of the thorax is performed without and with IV Contrast, patient injected with 100ml mL of I sovue 370, aneurysm protocol. 3D reconstructed images are created on an independent workstation and reviewed. FINDINGS: LUNGS: The lungs are grossly clear, there is no concerning parenchymal mass or nodule identified. T here is no pleural effusion or pneumothorax seen. The tracheobronchial tree is patent. MEDIASTINUM: Noncontrast images show no suspicious hyperdense material to suggest intramural hematoma . Aorta measures 3.9 cm in diameter at the root coronal image 59. There is an ascending aortic aneur ysm up to 4.3 cm axial image 82 redemonstrated. Normal 3 vessel origins from aortic arch without aneu rysm extension. No significant stenosis at this level. Patent celiac artery and SMA along with bilate ral single renal arteries. There are no greater than 1 cm hilar or mediastinal lymph nodes. No card iomegaly. Tiny anterior inferior pericardial effusion is seen. Moderate coronary artery calcification is present. OTHER: Tiny amount of right-sided subareolar gynecomastia. There are a few small simple appearing thi n-walled cysts scattered throughout both kidneys. There is large 4.1 cm rim calcified gallstone in th e dependent gallbladder axial image 65. IMPRESSION: Ascending aortic aneurysm up to 4.3 cm redemonstrated and stable.
--- NOTE | 2023-03-29 11:17 | CA ---
Transthoracic Echo Report Name: Gatito Foster Age: 78 Gender: M : 1945 Exam Date: 03/27/2023 13:36 Exam Location: [place] [facility] Ht (in): 69 Wt (lb): 170 Ordering Physician: Rakan Penn MD Attending/Referring Phys: [employer] Mikaela Betancur [facility] Procedure CPT: Indications: I71.2 THORACIC AORTIC ANEURYSM, WITHOUT RUP,I25.1 Cardiac Hx: Technical Quality: Fair Contrast 1: Total Dose (mL): Contrast 2: Total Dose (mL): MEASUREMENTS (Male / Female) Normal Values 2D ECHO LV Diastolic Diameter PLAX 4.6 cm 4.2 - 5.9 / 3.9 - 5.3 cm LV Systolic Diameter PLAX 3.5 cm IVS Diastolic Thickness 0.9 cm 0.6 - 1.0 / 0.6 - 0.9 cm LVPW Diastolic Thickness 1.0 cm 0.6 - 1.0 / 0.6 - 0.9 cm LV Relative Wall Thickness 0.4 LVOT Diameter 2.1 cm Aortic Root Diameter 3.5 cm Ascending Aorta Diameter 4.1 cm M-MODE Aortic Root Diameter MM 2.9 cm LA Systolic Diameter MM 3.0 cm LA Ao Ratio MM 1.0 AV Cusp Separation MM 2.1 cm DOPPLER AV Peak Velocity 152.8 cm/s AV Peak Gradient 9.3 mmHg AV Mean Velocity 108.2 cm/s AV Mean Gradient 5.3 mmHg AV Velocity Time Integral 33.0 cm AI Peak Velocity 295.6 cm/s AI Peak Gradient 35.0 mmHg AI Pressure Half Time 886.7 ms LVOT Peak Velocity 100.2 cm/s LVOT Peak Gradient 4.0 mmHg LVOT Velocity Time Integral 25.3 cm LVOT Stroke Volume 85.8 cm??? LVOT Stroke Volume Index 44.5 ml/m??? LVOT Cardiac Index 2600.2 cm???/min???m??? AV Area Cont Eq vti 2.6 cm??? AV Area Cont Eq pk 2.2 cm??? Mitral E Point Velocity 74.5 cm/s Mitral A Point Velocity 98.2 cm/s Mitral E to A Ratio 0.8 MV Deceleration Time 235.6 ms LV E' Lateral Velocity 7.5 cm/s Mitral E to LV E' Lateral Ratio 10.0 LV E' Septal Velocity 7.3 cm/s Mitral E to LV E' Septal Ratio 10.3 TR Peak Velocity 196.7 cm/s TR Peak Gradient 15.5 mmHg Right Atrial Pressure 3.0 mmHg Pulmonary Artery Systolic Pressu 18.5 mmHg Right Ventricular Systolic Press 18.5 mmHg FINDINGS Left Ventricle Left ventricular wall thickness normal. Left ventricular cavity size normal. Mildly reduced global left ventricular systolic function. Left ventricular ejection fraction is estimated at 45-50%. Right Ventricle mild right ventricular dilatation. Right Atrium Mild right atrial dilatation. Left Atrium Normal left atrial size. Mitral Valve Mitral valve thickened. Mild mitral regurgitation. Aortic Valve Trileaflet aortic valve. Aortic valve sclerosis. Mild aortic regurgitation. Tricuspid Valve Structurally normal tricuspid valve. Trace tricuspid regurgitation. Pulmonic Valve Pulmonic valve not well visualized. Trace pulmonic regurgitation. Pericardium No pericardial effusion. Aorta Aortic root at upper limits of normal. Mildly dilated proximal ascending aorta (tube). CONCLUSIONS Left ventricular ejection fraction is estimated at 45-50%. Mildly reduced global left ventricular systolic function. Mild distal anterolateral wall hypokinesia Mild RV dilatation. Mild RV dilatation Mild aortic regurgitation. Aortic sclerosis Mild MR Previewed by: Dr Jan Fisher (Electronically Signed) Final Date: 29 March 2023 11:16
== END | disposition home or self-care (01) ==
LOC: RADCTMAIN 13:12
PROVIDERS: ATTEND Family Medicine
DX: I71.21 Aneurysm of the ascending aorta, without rupture (principal); I25.10 Atherosclerotic heart disease of native coronary artery without angina pectoris
CPT/HCPCS: 93306; 82565; 84520; 71275; 36415; Q9967

== ENCOUNTER → 2024-05-06 | Outpatient (CLI) | payer MEDICARE ==
--- NOTE | 2024-05-06 13:31 | CT ---
EXAMINATION TYPE: CT chest wo con CT DLP: 344.5 mGycm, Automated exposure control for dose reduction was used. DATE OF EXAM: 05/06/2024 1:21 PM COMPARISON: CTA chest 03/27/2023, 03/26/2020, CT chest 03/18/2022, 04/09/2021, 03/29/2019, 03/19/2018, PET/C T 04/14/2020 CLINICAL INDICATION:Male, 79 years old with history of I71.20 THORACIC AORTIC ANEURYSM; [facility], thoracic aneurysm TECHNIQUE: Multiple axial images were obtained through the chest without IV contrast. Lack of IV or o ral contrast limits evaluation of solid and hollow organ viscera. . Coronal and sagittal reformats re viewed. FINDINGS: LUNGS/ PLEURA: No pleural effusion, pneumothorax, or focal consolidation. Linear atelectasis along th e left major fissure involving the lingula. Few punctate calcified granulomas. No suspicious pulmonar y nodule or mass. AIRWAY: Patent and unremarkable.. HEART: Size within normal limits.No pericardial effusion. Small coronary artery calcifications. MEDIASTINUM: No gross evidence of adenopathy. Few mediastinal and left hilar calcified lymph nodes/gr anulomas. VASCULATURE: Conventional three-vessel aortic arch. The ascending thoracic aorta demonstrates aneury smal dilatation again measuring 4.6 x 4.5 cm, previously measured up to 4.3 cm. Stable ectasia of the aortic root measuring up to 3.9 cm. The descending thoracic aorta measures up to 2.6 cm. MUSCULOSKELETAL: No acute osseous abnormalities. Bilateral shoulder arthropathy. DISH of the thoracic spine. SOFT TISSUES/LYMPH NODES: Tiny right-sided subcutaneous area of gynecomastia redemonstrated. LOWER NECK: No significant findings. UPPER ABDOMEN: Large calcified gallstone measuring 4.3 cm redemonstrated. Right renal upper pole 2.2 cm cyst. Left renal upper pole 4.2 cm cyst. IMPRESSION: 1. Marginal increase in size of ascending aortic aneurysm measuring up to 4.6 cm, previously 4.3 cm. 2. Cholelithiasis. [facility], , 05/06/2024 1:28 PM
== END | disposition home or self-care (01) ==
LOC: RADCTMAIN 13:02
PROVIDERS: ATTEND Family Medicine
DX: I71.20 Thoracic aortic aneurysm, without rupture, unspecified (principal); K80.20 Calculus of gallbladder without cholecystitis without obstruction; I71.21 Aneurysm of the ascending aorta, without rupture
CPT/HCPCS: 71250